=== PATIENT | female | born 1935 | race Caucasian/White ===

== ENCOUNTER 2017-01-29 06:03 | Inpatient (IN) | payer OTHER, BC ==
[2017-01-02 12:42] VITALS: BMI 28.0
--- NOTE | 2017-01-02 13:07 | PAT Medication Instructions ---
Service Date Jan 02, 2017. Current Home Medication List Aspirin (Aspirin Ec), 81 MG PO QPM Ibuprofen (Motrin), 400 MG PO Q6H PRN for Pain Ibuprofen-Diphenhydramine Citr (Ibuprofen Pm), 1 TAB PO HS PRN for Insomnia Levothyroxine Sodium (Levothyroxine Sodium), 1 TAB PO QAM Multivitamin (Multivitamin), 1 TAB PO HS Pravastatin (Pravachol ), 40 MG PO HS [Potassium], 99 MG PO HS Medication Instructions For Your Scheduled Surgery - Hold the following medications 1 WEEK prior to surgery as instructed by surgeon: Ibuprofen (Motrin), 400 MG PO Q6H PRN for Pain Ibuprofen-Diphenhydramine Citr (Ibuprofen Pm), 1 TAB PO HS PRN for Insomnia - Take the following medications the morning of surgery with a sip of water OTHERWISE NOTHING TO EAT OR DRINK AFTER MIDNIGHT: Levothyroxine Sodium (Levothyroxine Sodium), 1 TAB PO QAM - Take the following medications as scheduled the night before surgery: Multivitamin (Multivitamin), 1 TAB PO HS Pravastatin (Pravachol ), 40 MG PO HS [Potassium], 99 MG PO HS Aspirin (Aspirin Ec), 81 MG PO QPM If you have any questions please call us at [phone] or [phone] or [phone]
[2017-01-02 14:00] LABS: BASO % 0.2 %; BASO ABS # 0.01 K/uL (0-0.2); COMPLETE YES; HEMATOCRIT 39.4 % (37-47); LYMPH % 23.2 %; LYMPH ABS # 0.95 K/uL (1.2-3.4); MEAN CELL VOLUME 89.5 fL (80-100); MEAN CORPUSCULAR HEMOGLOBIN 30.2 pg (25-34); MEAN CORPUSCULAR HGB CONC 33.8 g/dl (32-36); MEAN PLATELET VOLUME 9.9 fL (7.4-10.4); MONO % 10.5 %; NEUT % 65.1 %; PLATELET COUNT 180 K/uL (130-400)
[2017-01-02 14:00] LABS: BUN/CREATININE RATIO 14.2 (10-20); CALCIUM 8.8 mg/dl (8.5-10.1); CREATININE 1.1 mg/dl (0.60-1.20)
[2017-01-02 14:16] LABS: INR 0.9 (0.9-1.1); PARTIAL THROMBOPLASTIN RATIO 1.1
[2017-01-02 14:56] LABS: URINE APPEARANCE CLEAR (CLEAR); URINE BILIRUBIN NEG (NEG); URINE COLOR YELLOW; URINE NITRITE NEG (NEG); URINE PH 5.5 (4.5-7.5); URINE SPECIFIC GRAVITY 1.017 (1.000-1.030); UROBILINOGEN NEG (NEG); ZZUR CULT IF INDIC CLEAN CATCH NO
[2017-01-02 15:03] LABS: MANUAL MICROSCOPIC REQUIRED? NO; REVIEW REQ? NO
--- NOTE | 2017-01-22 09:30 | History and Physical ---
History & Physical Date Jan 22, 2017. Chief Complaint LEFT KNEE PAIN History of Present Illness The patient is a 81 year old female with complaints of left knee pain for several years. Patient rates pain 8/10. Patient has pain with daily activities, limited standing and walking tolerance, and pain with weight bearing. Patient has failed injections, HEP, and NSAIDS. She is now ready to proceed with left TKA. Past Medical/Surgical History Surgical Problems: (1) Post-operative state Additional History Hepatic Disease: No Endocrine Disorder: Yes (Thyroid disease) Kidney Disease: No Hypertension: No Heart Disease: No Bleeding Tendencies: No Infectious Diseases: No Other: HYPERCHOLESTEROLEMIA OA DENIES CAD, DM, DVT Allergies Coded Allergies: Penicillins (Verified Allergy, Unknown, HIVES, 01/02/17) Home Medications Scheduled Aspirin (Aspirin Ec), 81 MG PO QPM Levothyroxine Sodium (Levothyroxine Sodium), 1 TAB PO QAM Multivitamin (Multivitamin), 1 TAB PO HS Pravastatin (Pravachol ), 40 MG PO HS [Potassium], 99 MG PO HS Scheduled PRN Ibuprofen (Motrin), 400 MG PO Q6H PRN for Pain Ibuprofen-Diphenhydramine Citr (Ibuprofen Pm), 1 TAB PO HS PRN for Insomnia Physical Examination Skin: warm/dry, no rash Eyes: normal inspection, EOMI, sclerae normal ENT: normal ENT inspection, pharynx normal Head: normocephalic, atraumatic Neck: supple, no adenopathy, trachea midline Respiratory/Chest: lungs clear, normal breath sounds, no respiratory distress Cardiovascular: regular rate, rhythm, no edema, no murmur Abdomen / GI: normal bowel sounds, non tender Back: normal inspection Extremities: normal inspection, normal range of motion, + pertinent finding ( NEUTRAL ALLIGMMENT, ROM 0-120, +1 LAXITY) Neurologic/Psych: no motor/sensory deficits, alert, normal reflexes, oriented x 3 Diagnosis DJD LEFT KNEE Plan of Treatment PATIENT IS AGREEABLE TO LEFT TKA WITH DR. MATIAS. PATIENT WOULD LIKE REFERRAL TO [facility]. PCP IS DR. VARGAS IN [place], [place].
[2017-01-29] VITALS (9 sets, daily range): BP systolic 118–146; BP diastolic 72–80; PULSE 57–72; TEMP 36.3–36.6; O2SAT 94–100; Ht 170.2 cm; Wt 82.8 kg
[~2017-01-29] VITALS: Ht 170.2 cm; Wt 82.8 kg
[~2017-01-29 06:03] MED LIST: ACETAMINOPHEN 500 MG TAB PO SCH; ASPI81TA28 PO; CeleBREX 200 MG CAP PO SCH; DEXAMETHASONE 4 MG TAB PO SCH; FAMOTIDINE 20 MG TAB PO SCH; GABAPENTIN 300 MG CAP PO SCH; IBUP-1459 PO; IBUP1TAB55 PO; LACTATED RINGER'S 1000ML IV SCH; LEVO75TA5 PO; METOCLOPRAMIDE HCL 10 MG TAB PO SCH; MULT-506 PO; POTASSIUM PO; PRAV20TA PO; ROPIVACAINE 5MG/ML 30 ML 150 MG, BUPIVACAINE/EPINEPHR 0.5% MPF 30 ML, KETOROLAC TROMETH... INFIL SCH; VANCOMYCIN INJ 1,250 MG in SODIUM CHLORIDE 0.9% 250ML 250 ML IV SCH
[2017-01-29] MEDS ORDERED: BUPIVACAINE 0.5 % 5 MG/1 ML PF 10ML VIAL ONE (06:29)
[2017-01-29] MEDS ORDERED: BUPIVACAINE 0.25% 30 ML VIAL ONE (06:29)
--- NOTE | 2017-01-29 06:46 | History & Physical Bridge Note ---
H&P Re-Evaluation Bridge Note: I have examined the patient, reviewed the History & Physical and in the interval since the performance of the History & Physical I have noted the following changes of clinical significance: No changes noted
[2017-01-29] MEDS ORDERED: POVIDONE-IODINE OP SOLN 30 ML BTL ONE (07:06)
[2017-01-29] MEDS ORDERED: ORTHO JOINT ANESTHETIC ONE (07:06)
[2017-01-29] MEDS ORDERED: BACITRACIN 50000 UNIT VIAL ONE (07:07)
[2017-01-29] MEDS ORDERED: FENTANYL CITRATE INJ 50 MCG/1 ML 2 ML VIAL ONE ×2 (07:15→07:49)
[2017-01-29] MEDS ORDERED: MIDAZOLAM HCL 1 MG/ML 2ML VIAL ONE ×2 (07:15→07:48)
[2017-01-29] MEDS: TRANEXAMIC ACID INJ 1,000 MG in SODIUM CHLORIDE 0.9% 100ML 100 ML IV SCH ×2 (08:29→11:55)
[2017-01-29] MEDS ORDERED: PHENYLEPHRINE 100MCG/ML 5ML SYR ONE (08:50)
[2017-01-29] MEDS ORDERED: PROPOFOL IV EMULSION 10 MG/ML 20 ML VIAL IV ONE ×3 (08:50→09:22)
[2017-01-29] MEDS ORDERED: LIDOCAINE HCL 2% 2 ML VIAL (20MG/ML) ONE (08:50)
--- NOTE | 2017-01-29 10:12 | [facility] Post Operative Brief Note ---
Immediate Operative Summary Operative Date Jan 29, 2017. Pre-Operative Diagnosis Degenerative Joint Disease Left Knee Post-Operative Diagnosis same Procedure(s) Performed Degenerative Joint Disease Left Knee Surgeon Dr. Henderson Helicopter Pilot Surgeon(s) Yesica Gentile PA-C Estimated Blood Loss 20 cc Findings above Specimens A: Left knee bone and tissue Drains 2 hemovac Anesthesia spinal, adductor Complication(s) None Disposition Recovery Room / PACU
[2017-01-29] MEDS ORDERED: MoRPHine SULFATE 2 MG/ML CARP IV PRN (10:15)
[2017-01-29] MEDS ORDERED: METOCLOPRAMIDE HCL INJ 5 MG/ML 2 ML VIAL IV PRN (10:15)
[2017-01-29] MEDS ORDERED: OXYCODONE HCL IR 5 MG TAB (IMMEDIATE RELEASE) PO PRN (10:15)
[2017-01-29] MEDS ORDERED: ALUMINUM/MAGNESIUM/SIMETH (MAALOX MAX) 30 ML UDC PO PRN (10:15)
[2017-01-29] MEDS ORDERED: MAGNESIUM HYDROXIDE SUSP 30 ML UDC PO PRN (10:15)
[2017-01-29] MEDS ORDERED: KETOROLAC TROMETHAMINE 15 MG/ML VIAL IV. PRN (10:15)
[2017-01-29] MEDS ORDERED: LABETALOL HCL IV 5 MG/ML 20ML IV PRN (10:30)
[2017-01-29] MEDS ORDERED: FENTANYL CITRATE INJ 50 MCG/1 ML 2 ML VIAL IV PRN (10:30)
[2017-01-29] MEDS ORDERED: ONDANSETRON INJ 2 MG/ML 2 ML VIAL IV PRN (10:30)
[2017-01-29] MEDS ORDERED: EpHEDrine SULFATE INJ 50 MG/ML AMP IV PRN (10:30)
[2017-01-29] MEDS ORDERED: HYDROmorphone INJ 1 MG/ML SYR IV PRN (10:30)
[2017-01-29] MEDS ORDERED: ATROPINE SULFATE 0.1 MG/ML 5ML SYR IV PRN (10:30)
[2017-01-29] MEDS ORDERED: MEPERIDINE HCL 25 MG/ML CARP IV PRN (10:30)
--- NOTE | 2017-01-29 11:19 | DIAGNOSTIC IMAGING REPORT ---
LEFT KNEE 1 OR 2 VIEWS ROUTINE HISTORY:81 yearsFemaleAP/LATERAL IN PACU LEFT KNEE COMPARISON: None available. TECHNIQUE: Frontal and crosstable portable views of the left knee. FINDINGS: There has been recent left knee arthroplasty with patellar resurfacing. Postsurgical soft tissue swelling and subcutaneous air is seen about the knee. No periprosthetic fracture or retained radiopaque foreign body identified. Alignment is satisfactory. IMPRESSION: Left total knee arthroplasty and patellar resurfacing without complication identified. The above report was generated using voice recognition software. It may contain grammatical, syntax or spelling errors. Electronically signed by: Carmelo Zapata 01/29/2017 11:18 AM Dictated Date/Time: 01/29/2017 11:16 AM
--- NOTE | 2017-01-29 11:40 | Anesthesiology Progress Note ---
Anesthesia Post Op Note Date & Time Jan 29, 2017 at 11:40 Vital Signs Pain Intensity: 0 Vital Signs Past 12 Hours Date Time Temp Pulse Resp B/P (MAP) Pulse Ox O2 Delivery O2 Flow Rate FiO2 01/29/17 11:20 36.3 72 18 125/70 98 Nasal Cannula 2 01/29/17 11:10 69 17 122/69 97 Nasal Cannula 2 01/29/17 11:00 70 17 127/65 97 Nasal Cannula 2 01/29/17 10:50 72 15 126/65 97 Nasal Cannula 2 01/29/17 10:40 71 16 132/69 100 Nasal Cannula 2 01/29/17 10:33 36.3 78 16 123/70 100 Mask 8 01/29/17 06:51 36.3 72 14 146/72 96 Room Air Notes Mental Status: alert / awake / arousable, participated in evaluation Pt Amnestic to Procedure: Yes Nausea / Vomiting: adequately controlled Pain: adequately controlled Airway Patency, RR, SpO2: stable & adequate BP & HR: stable & adequate Hydration State: stable & adequate Neuraxial Anesthesia: was administered, sensory block is resolving Anesthetic Complications: no major complications apparent
[2017-01-29] MEDS: FERROUS GLUCONATE 324 MG TAB PO SCH ×2 (12:30→17:42)
--- NOTE | 2017-01-29 12:55 | [facility] Operative Report ---
Operative Report Operative Date Jan 29, 2017. Pre-Operative Diagnosis Degenerative Joint Disease Left Knee Post-Operative Diagnosis same Procedure(s) Performed Degenerative Joint Disease Left Knee Surgeon Dr. Henderson Supervisor [employer] Store Surgeon(s) Yesica Gentile PA-C Estimated Blood Loss 20 cc Findings above Specimens A: Left knee bone and tissue Drains 2 hemovac Anesthesia spinal, adductor Disposition Recovery Room / PACU Indications 81-year-old female with long-standing degenerative joint disease of left knee. She has failed conservative measures and injection anti-inflammatories and external support. She wishes to proceed with left total knee arthroplasty. Description of Procedure Risks benefits and alternatives of surgery including but not limited to infection DVT pain stiffness need for surgery damage to blood vessels damage to nerves or risks of anesthesia were discussed with the patient and she wished to proceed. Patient was identified in the laterality was confirmed and marked. She received a preoperative antibiotic is also a spinal anesthetic and a abductor canal block. A well-padded tourniquet was applied and then the limb was prepped and draped in standard manner with ChloraPrep. The limb was exsanguinated and the tourniquet was inflated. I made a standard anterior Incision. I sharply incised the skin then utilized Bovie electrocautery as well as the aqua mantis to achieve hemostasis. I made a medial parapatellar arthrotomy immobilized the patella laterally. I then excised the anterior horns of the medial and lateral meniscus as well as the infrapatellar fat pad. I then pinned into place a patient-matched distal femoral cutting guide and made my distal femoral resection. I then pinned into place a size 6 5 in 1 cutting guide. I made my anterior, posterior and chamfer cuts. I then excised the cruciates and the remaining portions of the menisci. I then pinned into place A patient-matched tibial cutting guide and made my tibial resection. I then pinned into place a size 4 tibia utilizing alignment rods to confirm rotation. I then cut for the post. Utilizing a lamina dog breeder and then removed posterior osteophytes off the femur. I then placed a trial femur into position and cut for the trochlear component. I then sequentially trialed to size 9 tibia. There was good soft tissue balancing and range of motion with a 9 tibia. I then prepared the patella with a freehand cut utilizing sagittal saw. I sized and drilled for a size 32 patella. There was good tracking to the patella no lateral release was needed. All the trial components were removed. The deep tissues were anesthetized with and ortho mix solution. Then with Simplex HV with gent cement I cemented my definitive components. This was a femur 6 tibia 4 poly-9 patella 32. A deep drain was placed. The arthrotomy was closed with interrupted #1 Vicryl suture subcutaneous tissue was closed with interrupted 2-0 Vicryl suture and skin with running 4-0 Monocryl. Sterile dressings applied and the tourniquet was released. All needle and sponge counts were correct at the end of the procedure patient was transferred to the PACU in stable condition without apparent complication. I attest to the content of the Intraoperative Record and any orders documented therein. Any exceptions are noted below. I attest to the content of the Intraoperative Record and any orders documented therein. Any exceptions are noted below.
[2017-01-29] MEDS: D5W AND 1/2NSS + 20MEQ KCL 1,000 ML IV SCH ×2 (13:01→21:35)
[2017-01-29] MEDS: ACETAMINOPHEN 500 MG TAB PO SCH ×2 (14:04→20:55)
[2017-01-29] MEDS ORDERED: VANCOMYCIN INJ 1,250 MG in SODIUM CHLORIDE 0.9% 250ML 250 ML IV SCH (20:00)
[2017-01-29] MEDS: DOCUSATE SODIUM 100 MG CAP PO SCH (20:55)
[2017-01-29] MEDS: ASPIRIN 81 MG ECTAB PO SCH (20:55)
[2017-01-29] MEDS: MULTIVITAMIN TAB PO SCH (20:56)
[2017-01-29] MEDS: PRAVASTATIN SOD 40 MG TAB PO SCH (20:56)
[2017-01-29] MEDS ORDERED: POTASSIUM 99 MG PO SCH (21:00)
[2017-01-29] MEDS: OXYCODONE HCL 10 MG TABCR (OXYCONTIN) PO SCH (21:40)
[2017-01-30 03:05] VITALS: BP 139/72; PULSE 56; TEMP 36.6; O2SAT 96
[2017-01-30 05:49] LABS: HEMATOCRIT 32.8 % (37-47); MEAN CELL VOLUME 89.1 fL (80-100); MEAN CORPUSCULAR HEMOGLOBIN 30.2 pg (25-34); MEAN CORPUSCULAR HGB CONC 33.8 g/dl (32-36); PLATELET COUNT 145 K/uL (130-400); RED BLOOD COUNT 3.68 M/uL (4.2-5.4); WHITE BLOOD COUNT 10.61 K/uL (4.8-10.8)
[2017-01-30] MEDS: ACETAMINOPHEN 500 MG TAB PO SCH ×3 (05:54→21:45)
[2017-01-30] MEDS: LEVOTHYROXINE 75 MCG TAB PO SCH (05:55)
[2017-01-30 06:24] LABS: CALCIUM 8.6 mg/dl (8.5-10.1); CREATININE 0.92 mg/dl (0.60-1.20); POTASSIUM 4.5 mmol/L (3.5-5.1)
[2017-01-30] MEDS ORDERED: DEXAMETHASONE 4 MG TAB PO SCH (07:30)
--- NOTE | 2017-01-30 07:43 | Orthopedic Progress Note ---
Orthopedic Progress Note Date of Service Jan 30, 2017. Subjective Post OP Day: 1 Reports: feeling well, Denies: chest pain, SOB, nausea / vomiting, light headedness, calf pain Objective calves soft nontender, N/V intact, dressing C/D/I, A&O x3, toes mobile, hemovac drainage (390/125 cc per shift) Date Time Temp Pulse Resp B/P (MAP) Pulse Ox O2 Delivery O2 Flow Rate FiO2 01/30/17 03:05 36.6 56 16 139/72 (94) 96 Room Air 01/29/17 23:15 Room Air 01/29/17 23:15 36.5 64 18 126/72 (90) 94 Room Air 01/29/17 20:20 36.4 62 18 120/72 (88) 95 Room Air 01/29/17 16:00 99 Nasal Cannula 2.0 01/29/17 15:00 36.6 66 18 126/79 (95) 99 Nasal Cannula 2.0 01/29/17 14:23 69 17 134/80 (98) 100 Nasal Cannula 2.0 01/29/17 13:38 63 20 130/75 (93) 99 Nasal Cannula 2.0 01/29/17 12:29 57 19 118/72 (87) 99 Nasal Cannula 2.0 01/29/17 11:44 96 Nasal Cannula 2.0 01/29/17 11:20 36.3 72 18 125/70 98 Nasal Cannula 2 01/29/17 11:10 69 17 122/69 97 Nasal Cannula 2 01/29/17 11:00 70 17 127/65 97 Nasal Cannula 2 01/29/17 10:50 72 15 126/65 97 Nasal Cannula 2 01/29/17 10:40 71 16 132/69 100 Nasal Cannula 2 01/29/17 10:33 36.3 78 16 123/70 100 Mask 8 Laboratory Results 24 Hours: Test 01/30/17 05:07 Hematocrit 32.8 % Hemoglobin 11.1 g/dL Assessment & Plan Assessment: POD#1 sp left TKA Plan: Patient seen and examined, agree with above Inhouse Planning Pain Management: Celebrex, Oxycontin, PO Tylenol, Oxy IR DVT Prophylaxis: TEDs, SCDs, ASA Discharge Planning Discharge Planning: rehab hospital (PATIENT REQUESTING REFERRAL TO [facility]. WILL REQUIRE 3 DAY STAY)
--- NOTE | 2017-01-30 07:44 | Discharge Instructions ---
Discharge Instructions Date of Service Jan 30, 2017. Admission Reason for Admission: Left Knee Degenerative Arthritis Discharge Discharge Diagnosis / Problem: sp left tka Discharge Goals Goal(s): Decrease discomfort, Improve function, Increase independence Activity Recommendations Activity Level: Ambulates in room Therapies: Physical Therapy, Occupational Therapy . Additional Information Patient informed of condition: Yes Advance Directives: Yes DNR: No Level of Care: Acute Rehab Communicable Disease: No Prognosis: Stable Instructions / Follow-Up Instructions / Follow-Up ACTIVITY RECOMMENDATIONS: SELF CARE INSTRUCTIONS AFTER TOTAL KNEE REPLACEMENT A. You may need to continue a physical therapy program after discharge from the hospital. There are several options available to you. Your doctor will assist you in selecting the best one for you. 1. An out-patient facility 2 to 3 times a week for therapy or home therapy. 2. Continue working on all exercises taught to you in the hospital. Your goals should be to increase bending of your knee to 90 degrees and beyond and to fully straighten your knee. B. You may progress at your own pace from walking with a walker or crutches to a cane; then to no assistive devices. C. Make walking a part of your daily routine. Be up as much as comfortable with rest periods throughout the day. Rest with leg elevation is very important. Use the ice wrap frequently for the first 3-4 weeks. D. There are no restrictions on activities. You may ride in a car, shop, participate in clinical counselor and all social activities. E. Wear the long elastic stockings (ALBIN hose) 20 hours a day for 2 weeks after surgery. They can be removed several times a day for laundering and for a bath. F. You may shower, no tub baths until cleared by your doctor. SPECIAL CARE INSTRUCTIONS: VERY IMPORTANT TO READ AND REVIEW A. There are a few signs you need to watch for after you are home. Call [facility] if you notice any of the followin. Increased severe knee pain. Some pain is expected especially when you exercise. 2. Increased swelling in your leg or knee; pain or swelling of the calf muscle in either lower leg. 3. Any fluid drainage from the incision. 4. Shortness of breath or chest pain. B. Please call [facility] at if you have any concerns or questions about your operation or recovery. The doctor or his nurse will return your call promptly. C. You must take antibiotics before dental work, bladder, bowel or other surgery. Your doctor will provide you with a permanent care to carry describing this precaution. IMPORTANT: * REMEMBER TO TAKE ASPIRIN, 81 MG, TWICE DAILY FOR 4 WEEKS UNLESS OTHERWISE DIRECTED. THIS IS YOUR BLOOD THINNER. * HIGH RISK PATIENTS MAY BE PRESCRIBED A STRONGER BLOOD THINNER. THIS WILL BE PROVIDED AT DISCHARGE. * CALL IF INCREASED PAIN, REDNESS, DRAINAGE OR FEVER GREATER THAT 101. * WEAR ALBIN HOSE 20 HOURS PER DAY FOR 2 WEEKS. DERMABOND Prineo- This is a mesh tape dressing that is covered with glue. It should remain in place until the incision is properly healed, usually 10-14 days. This dressing is designed to naturally slough off. You may trim the excess mesh tape as it peels off. Incision may be briefly wet in a shower. Dry immediately by blotting with a clean, dry towel. Do not bath or swim until instructed by your doctor. Do not scratch, rub, or pick at the dressing. Do not apply any topical ointments or lotions until dressing is completely removed and/or instructed by your doctor. There may be a small piece of suture material at one end of your incision. Do not pull or trim this. If it is bothersome or catching on clothing, you may cover it with a band-aid. FOLLOW UP VISIT: If appointment is not already scheduled: Please call [facility] to make a follow-up appointment for 2 weeks after your surgery at . Current Hospital Diet Patient's current hospital diet: Regular Diet Discharge Diet Recommended Diet: Regular Diet Procedures Procedures Performed: Degenerative Joint Disease Left Knee Pending Studies Studies pending at discharge: no Medical Emergencies . Who to Call and When: Medical Emergencies: If at any time you feel your situation is an emergency, please call 911 immediately. . Non-Emergent Contact Non-Emergency issues call your: Surgeon . . "Provider Documentation" section prepared by Niru Gentile. . Core Measure Problem Core Measures: None [place] Drug Monitoring Program Search Results: patient reviewed within database, no issues identified
[2017-01-30] MEDS: D5W AND 1/2NSS + 20MEQ KCL 1,000 ML IV SCH (07:53)
[2017-01-30 07:55] VITALS: BP 130/70; PULSE 57; TEMP 36.6; O2SAT 100
[2017-01-30] MEDS: PANTOprazole SOD 40 MG TAB PO SCH (08:50)
[2017-01-30] MEDS: FERROUS GLUCONATE 324 MG TAB PO SCH ×3 (08:50→17:56)
[2017-01-30] MEDS: OXYCODONE HCL 10 MG TABCR (OXYCONTIN) PO SCH ×2 (08:50→21:42)
[2017-01-30] MEDS: ASPIRIN 81 MG ECTAB PO SCH ×2 (08:50→21:43)
[2017-01-30] MEDS: DOCUSATE SODIUM 100 MG CAP PO SCH ×2 (08:50→21:43)
--- NOTE | 2017-01-30 08:54 | Anesthesiology Progress Note ---
Anesthesia Post Op Note Date & Time Jan 30, 2017 at 08:54 Vital Signs Pain Intensity: 2.0 Vital Signs Past 12 Hours Date Time Temp Pulse Resp B/P (MAP) Pulse Ox O2 Delivery O2 Flow Rate FiO2 01/30/17 08:23 Room Air 01/30/17 07:55 36.6 57 12 130/70 (90) 100 Room Air 01/30/17 03:05 36.6 56 16 139/72 (94) 96 Room Air 01/29/17 23:15 Room Air 01/29/17 23:15 36.5 64 18 126/72 (90) 94 Room Air Notes Mental Status: alert / awake / arousable, participated in evaluation Pt Amnestic to Procedure: Yes Nausea / Vomiting: adequately controlled Pain: adequately controlled Airway Patency, RR, SpO2: stable & adequate BP & HR: stable & adequate Hydration State: stable & adequate Neuraxial Anesthesia: sensory block resolved Anesthetic Complications: no major complications apparent
[2017-01-30] MEDS ORDERED: MULTIVITAMIN TAB PO SCH (09:00)
[2017-01-30 09:49] VITALS: O2SAT 100
[2017-01-30 11:42] VITALS: BP 128/68; PULSE 60; TEMP 36.5; O2SAT 99
[2017-01-30 16:10] VITALS: BP 122/61; PULSE 65; TEMP 36.5; O2SAT 98
[2017-01-30] MEDS ORDERED: NURSING VERBAL MED ORDER ONE (21:30)
[2017-01-30] MEDS: PRAVASTATIN SOD 40 MG TAB PO SCH (21:44)
[2017-01-30] MEDS: MULTIVITAMIN TAB PO SCH (21:44)
[2017-01-30] MEDS: CeleBREX 200 MG CAP PO SCH (21:47)
[2017-01-30 22:55] VITALS: BP 133/72; PULSE 76; TEMP 36.8; O2SAT 97
[2017-01-31] MEDS: ACETAMINOPHEN 500 MG TAB PO SCH ×3 (05:45→21:27)
[2017-01-31] MEDS: LEVOTHYROXINE 75 MCG TAB PO SCH (05:45)
[2017-01-31 06:35] VITALS: BP 120/70; PULSE 62; TEMP 36.8; O2SAT 96
--- NOTE | 2017-01-31 07:42 | Orthopedic Progress Note ---
Orthopedic Progress Note Date of Service Jan 31, 2017. Subjective Post OP Day: 2 Reports: feeling well, Denies: chest pain, SOB, nausea / vomiting, light headedness, calf pain Objective calves soft nontender, N/V intact, incision C/D/I, A&O x3, toes mobile Date Time Temp Pulse Resp B/P (MAP) Pulse Ox O2 Delivery O2 Flow Rate FiO2 01/31/17 06:35 36.8 62 16 120/70 (87) 96 Room Air 01/31/17 00:02 Room Air 01/30/17 22:55 36.8 76 16 133/72 (92) 97 Room Air 01/30/17 16:10 36.5 65 18 122/61 (81) 98 01/30/17 15:45 Room Air 01/30/17 11:42 36.5 60 16 128/68 (88) 99 Room Air 01/30/17 09:49 100 Room Air 01/30/17 08:23 Room Air 01/30/17 07:55 36.6 57 12 130/70 (90) 100 Room Air Assessment & Plan Assessment: POD#2 sp left TKA Inhouse Planning Pain Management: Celebrex, Oxycontin, PO Tylenol, Oxy IR DVT Prophylaxis: TEDs, SCDs, ASA Discharge Planning Discharge Planning: rehab hospital (PATIENT REQUESTING REFERRAL TO [facility]. WILL REQUIRE 3 DAY STAY. PLAN ON TRANSFER SUNDAY.)
[2017-01-31] MEDS ORDERED: ASPI81TA28 PO (07:49)
[2017-01-31] MEDS ORDERED: ONDA8TAB6 PO (07:49)
[2017-01-31] MEDS ORDERED: CLB200 PO (07:49)
[2017-01-31] MEDS ORDERED: OXYSR10 PO (07:49)
[2017-01-31] MEDS ORDERED: RXC5 PO (07:49)
[2017-01-31] MEDS ORDERED: ACET-24 PO (07:49)
[2017-01-31 07:56] VITALS: BP 116/62; PULSE 70; TEMP 36.5; O2SAT 99
[2017-01-31] MEDS: FERROUS GLUCONATE 324 MG TAB PO SCH ×3 (08:05→17:47)
[2017-01-31] MEDS: ASPIRIN 81 MG ECTAB PO SCH ×2 (08:05→21:26)
[2017-01-31] MEDS: CeleBREX 200 MG CAP PO SCH ×2 (08:05→21:27)
[2017-01-31] MEDS: DOCUSATE SODIUM 100 MG CAP PO SCH ×3 (08:05→21:00)
[2017-01-31] MEDS: PANTOprazole SOD 40 MG TAB PO SCH (08:06)
[2017-01-31] MEDS: OXYCODONE HCL 10 MG TABCR (OXYCONTIN) PO SCH ×2 (08:06→21:00)
[2017-01-31 08:51] VITALS: O2SAT 99
[2017-01-31 11:45] VITALS: BP 116/64; PULSE 64; TEMP 36.6; O2SAT 98
[2017-01-31 15:18] VITALS: BP 105/65; PULSE 69; TEMP 36.5; O2SAT 97
[2017-01-31] MEDS: PRAVASTATIN SOD 40 MG TAB PO SCH (21:22)
[2017-01-31] MEDS: MULTIVITAMIN TAB PO SCH (21:25)
[2017-01-31 22:44] VITALS: BP 122/68; PULSE 67; TEMP 36.5; O2SAT 97
[2017-02-01] MEDS: LEVOTHYROXINE 75 MCG TAB PO SCH (05:58)
[2017-02-01] MEDS: ACETAMINOPHEN 500 MG TAB PO SCH (05:59)
--- NOTE | 2017-02-01 08:01 | Orthopedic Progress Note ---
Orthopedic Progress Note Date of Service Feb 01, 2017. Subjective Post OP Day: 3 Reports: feeling well, Denies: chest pain, SOB, nausea / vomiting, light headedness, calf pain Objective calves soft nontender, N/V intact, incision C/D/I, A&O x3, toes mobile Date Time Temp Pulse Resp B/P (MAP) Pulse Ox O2 Delivery O2 Flow Rate FiO2 02/01/17 07:39 Room Air 01/31/17 23:20 Room Air 01/31/17 22:44 36.5 67 18 122/68 (86) 97 Room Air 01/31/17 15:25 Room Air 01/31/17 15:18 36.5 69 16 105/65 (78) 97 Room Air 01/31/17 11:45 36.6 64 14 116/64 (81) 98 Room Air 01/31/17 08:51 99 Room Air 01/31/17 08:00 Room Air Assessment & Plan Assessment: POD#3 sp left TKA Inhouse Planning Pain Management: Celebrex, Oxycontin, PO Tylenol, Oxy IR DVT Prophylaxis: TEDs, SCDs, ASA Discharge Planning Discharge Planning: rehab hospital (PATIENT REQUESTING REFERRAL TO [facility]. WILL REQUIRE 3 DAY STAY. PLAN ON TRANSFER SUNDAY.)
[2017-02-01] MEDS: PANTOprazole SOD 40 MG TAB PO SCH (08:07)
[2017-02-01] MEDS: FERROUS GLUCONATE 324 MG TAB PO SCH (08:07)
[2017-02-01] MEDS: ASPIRIN 81 MG ECTAB PO SCH (08:07)
[2017-02-01] MEDS: DOCUSATE SODIUM 100 MG CAP PO SCH (08:07)
[2017-02-01] MEDS: OXYCODONE HCL 10 MG TABCR (OXYCONTIN) PO SCH (08:08)
[2017-02-01] MEDS: CeleBREX 200 MG CAP PO SCH (08:08)
[2017-02-01 08:10] VITALS: BP 122/68; PULSE 67; TEMP 36.5; O2SAT 97
[2017-02-01 08:40] VITALS: BP 118/66; PULSE 70; TEMP 36.7; O2SAT 99
[2017-02-01 08:47] VITALS: O2SAT 97; O2SAT 99
--- NOTE | 2017-02-02 14:25 | Discharge Summary ---
Orthopedic Discharge Summary Admission Date/Reason Jan 29, 2017 at 06:45 Left Knee Degenerative Arthritis. Discharge Date/Disposition Feb 01, 2017 halfway facility Diagnosis Principal Diagnosis: DJD LEFT KNEE Procedure(s) Performed LEFT TKA WITH DR. MATIAS Admission Physical Exam As per Admitting History & Physical. Hospital Course Patient was admitted on the above day for the above procedure. Procedure went without complication. Postop day 1 patient was feeling well without complaints , she denied chest pain or shortness of breath. Vital signs were stable she was afebrile. Dressing was clean dry and intact she was neurovascularly intact. Calves are soft and nontender. Patient began physical therapy per protocol. Postop day 2 patient was continuing to improve. She denied chest pain or shortness of breath. Vital signs were stable she was afebrile. Incision was clean dry and intact. She was neurovascularly intact. Calves are soft and nontender. These continue to progress with physical therapy. Patient requested referral to [facility]. Patient requiring a three-day hospital stay. Postop day 3 patient continued to do well vital signs were stable. She was afebrile. Incision was clean dry and intact. She was neurovascularly intact. Patient continued to progress with physical therapy. She was discharged to [facility] later that day in stable condition. Discharge Instructions Please refer to the electronic Patient Visit Report (Discharge Instructions) for additional information.
== END 2017-02-01 11:28 | DRG 470 ==
LOC: C.ACU 06:03 → C.3E 06:45 → ENRESERV 11:08 → C.3E 11:54
PROVIDERS: ADMIT Orthopaedic Surgery; ATTEND Orthopaedic Surgery
PROC: 0SRD0J9 Replacement of Left Knee Joint with Synthetic Substitute, Cemented, Open Approach (ICD-10-PCS; principal; 2017-01-29 08:15)
DX: M17.12 Unilateral primary osteoarthritis, left knee (principal); E78.5 Hyperlipidemia, unspecified; E07.9 Disorder of thyroid, unspecified; Z96.651 Presence of right artificial knee joint; Z79.82 Long term (current) use of aspirin; Z79.899 Other long term (current) drug therapy